=== PATIENT | female | born 1970 | race African-American/Black ===

== ENCOUNTER 2021-04-14 15:22 | Emergency (ER) | payer BC, SELFPAY ==
[2021-04-14 15:33] VITALS: BP 175/106; PULSE 74; RESP 16; TEMP 36.4; O2SAT 100
--- NOTE | 2021-04-14 16:10 | ECG_ITS ---
Measurements Intervals [place] Rate: 73 P: 43 WA: 133 QRS: 16 QRSD: 85 T: 8 QT: 372 QTc: 410 Interpretive Statements SINUS RHYTHM VOLTAGE CRITERIA FOR LVH NONSPECIFIC T-WAVE ABNORMALITY- ANT/INF LEADS BASELINE ARTIFACT- I, II, III, AVR, AVL, AVF, V1-V2 BORDERLINE ECG Electronically Signed On 04-15-2021 7:38:23 SHANK SORTER by Jack Weeks D.O.
--- NOTE | 2021-04-14 16:10 | ED.CHESTPAIN ---
HPI - Chest Pain General Chief Complaint: Chest Pain Stated Complaint: numbness left hand/cp Time Seen by Provider: 04/14/21 15:56 Source: patient and RN notes reviewed Mode of arrival: ambulatory Limitations: no limitations History of Present Illness HPI narrative: Patient presents today complaining of a 2-day history of intermittent left chest pressure and intermittent left arm, hand, and finger numbness. She is currently experiencing and rates her left chest pressure 3/10. These symptoms are lessened when she takes a double dose of her losartan, which she has been doing to decrease her blood pressure. Blood pressure upon arrival was 175/106. States when her chest pressure is high she also experiences radiation to her back. Denies shortness of breath, headache, dizziness, lightheadedness, weakness. Denies numbness or tingling to the face. MD complaint: chest discomfort Related Data Home Medications Medication Instructions Recorded Confirmed ascorbic acid (vitamin C) 04/14/21 aspirin 81 mg PO DAILY 04/14/21 04/14/21 biotin 04/14/21 hydrochlorothiazide 04/14/21 losartan 04/14/21 mecobalamin (vitamin B12) 04/14/21 vitamin E 04/14/21 Allergies Allergy/AdvReac Type Severity Reaction Status Date / Time No Known Allergies Allergy Mild Verified 02/17/09 12:59 Review of Systems Review of Systems: CONSTITUTIONAL: Denies body aches, fever, chills, or sweats. EYES: Denies visual changes, redness, or discharge. ENT: Denies rhinorrhea, congestion, sore throat, or otalgia. CARDIOVASCULAR: Denies chest pain, palpitations, or edema.+ Left chest pressure RESPIRATORY: Denies cough or dyspnea. GASTROINTESTINAL: Denies abdominal pain, nausea, vomiting, or diarrhea. GENITOURINARY: Denies dysuria or hematuria. SKIN: Denies rash, itching, or wounds. MUSCULOSKELETAL: Denies back pain, joint pain, or myalgia. NEUROLOGIC: Denies headache, or weakness.+ Numbness and tingling into the left arm and hand PSYCH: Denies depression or anxiety. [facility] Past Medical History Medical History (Updated 04/14/21 @ 16:36 by Anabel Coburn, MOHS SURGEON, BC) Hypertension Comments At time of signature, I have reviewed and agree with nursing past medical, surgical, social and family history unless otherwise noted. Please see nursing chart for further information. There is no relevant family history pertinent to the presenting complaint Exam Narrative: GENERAL: Well-appearing, well-nourished, and in no acute distress. HEAD: Normocephalic, atraumatic. EYES: EOMI. PERRL. No redness or drainage. Conjunctivae normal. ENT: Mucous membranes pink and moist. NECK: Normal AROM. CHEST: No respiratory distress. Clear to auscultation. Chest is nontender to palpation. HEART: Regular rate and rhythm. No murmur appreciated. Normal peripheral pulses. MUSCULOSKELETAL: No bony tenderness. EXTREMITIES: Normal range of motion. No edema. Handgrips equal and strong. Dorsiflexion and plantarflexion equal and strong bilaterally. SKIN: Warm, dry, no rash. Capillary refill normal. Normal skin turgor. NEURO: No focal deficits. Alert and oriented x3. Gait steady. PSYCH: Normal affect. No signs of depression or anxiety. Course Vital Signs Vital signs: Vital Signs Temperature 97.5 F L 04/14/21 15:33 Pulse Rate 74 04/14/21 15:33 Respiratory Rate 16 04/14/21 15:33 Blood Pressure 175/106 H 04/14/21 15:33 Pulse Oximetry 100 04/14/21 15:33 Temperature 97.5 F L 04/14/21 15:33 Pulse Rate 74 04/14/21 15:33 Respiratory Rate 16 04/14/21 15:33 Blood Pressure 175/106 H 04/14/21 15:33 Pulse Oximetry 100 04/14/21 15:33 Reviewed. Transfer Transfered to: [facility]: Other (private vehicle) Transfer rationale: Chest pain Accepting physician: Roberto HOANG - Chest Pain Differential Diagnosis Differential diagnosis: Likely stable angina, st elevation myocardial infarction, chest pain and other (ACS, TIA) ECG Data EKG #1
== END 2021-04-14 16:24 | disposition short-term general hospital (02) ==
PROVIDERS: Emergency Provider Nurse Practitioner
DX: R07.89 Other chest pain (principal); I10 Essential (primary) hypertension; Z79.82 Long term (current) use of aspirin
CPT/HCPCS: 93005; 99213; G0463

== ENCOUNTER 2021-04-14 16:41 | Emergency (ER) | payer BC, SELFPAY ==
[2021-04-14] VITALS (7 sets, daily range): BP systolic 139–187; BP diastolic 90–103; PULSE 71–92; RESP 13–22; TEMP 36.1–36.8; O2SAT 97–100
--- NOTE | ~2021-04-14 | XR_ITS ---
EXAMINATION: XR chest 2V DATE: 04/14/2021 17:15 INDICATION: Medial left chest pain/pressure with numbness and tingling at the left arm TECHNIQUE: PA and lateral views of the chest were obtained. COMPARISON: None FINDINGS: The lungs are clear with no focal airspace opacities, pulmonary edema, pleural effusion or pneumothor ax. The cardiomediastinal silhouette is normal. Minimal thoracic dextrocurvature. IMPRESSION: 1. No acute cardiopulmonary disease. Reviewed, dictated and finalized at location [facility]. [facility] ANESTHETIST
--- NOTE | 2021-04-14 16:46 | ECG_ITS ---
Measurements Intervals [place] Rate: 71 P: 51 NV: 158 QRS: 32 QRSD: 86 T: 22 QT: 374 QTc: 408 Interpretive Statements SINUS RHYTHM BORDERLINE T WAVE ABNORMALITY- ANTERIOR LEADS BASELINE WANDER- V2, V5-V6 BORDERLINE ECG Electronically Signed On 04-15-2021 7:37:12 [employer] by Jack Weeks D.O.
[2021-04-14 18:14] LABS: Basophils Absolute Auto 0.1 K/mm3 (0.0-0.1); Eosinophils Absolute Auto 0.1 K/mm3 (0-0.3); Eosinophils Percent Auto 1.2 % (0-4.4); Hemoglobin 13.3 g/dL (12.0-15.0); Immature Granulocyte Absolute 0.01 K/mm3 (0.00-0.031); Immature Granulocyte Percent A 0.2 % (0-0.5); Lymphocytes Absolute Auto 2.08 K/mm3 (0.9-3.2); Lymphocytes Percent Auto 35.2 % (18.3-44.2); Mean Corpuscular HGB Conc 33.3 g/dl (32-36); Mean Corpuscular Hemoglobin 28.5 pg (26-34); Mean Corpuscular Volume 85.7 fl (80-100); Mean Platelet Volume 9.6 fl (7.4-10.4); Monocytes Absolute Auto 0.5 K/mm3 (0.1-0.6); Monocytes Percent Auto 8.5 % (2.6-8.5); Neutrophils Absolute Auto 3.2 K/mm3 (1.3-6.7); Neutrophils Percent Auto 53.9 % (45.5-73.1); Platelet Count Result 342 k/mm3 (150-375); Red Blood Count 4.67 M/mm3 (4.2-5.4); Red Cell Distribution Width 13.4 % (11.5-14.5); White Blood Count 5.9 K/mm3 (4.5-10.0)
[2021-04-14 18:21] LABS: Alanine Aminotransferase 15 U/L (4-35); Alkaline Phosphatase 85 U/L (38-126); Anion Gap 8 mmol/L (8-16); Aspartate Amino Transferase 25 U/L (14-36); Bilirubin,Total 0.3 mg/dL (0.2-1.3); Blood Urea Nitrogen 12 mg/dL (7-17); Carbon Dioxide 28 mmol/L (22-30); Chloride 98 mmol/L (98-107); Estimated CRCL calculation 56 ml/min; Estimated Glomerular Filt Rate > 60; Glucose 83 mg/dL (65-110); INR 0.9; Lipase 83 U/L (23-300); Potassium 3.8 mmol/L (3.4-5.0); Prothrombin Time 12.4 Seconds (11.1-14.7); Sodium 134 mmol/L (137-145)
[2021-04-14 18:22] LABS: Partial Thromboplastin Time 31.1 SECONDS (22.3-36.8)
[2021-04-14 18:33] LABS: Troponin I < 0.012 ng/mL (0.000-0.034)
[2021-04-14] MEDS: ASPIRIN 81 MG CHEWABLE TABLET 324 MG PO (21:42)
[2021-04-14] MEDS: amLODIPine BESYLATE 5 MG TABLET PO (21:43)
[2021-04-14 22:07] LABS: Troponin I < 0.012 ng/mL (0.000-0.034)
--- NOTE | 2021-04-14 22:37 | ED.CHESTPAIN ---
HPI - Chest Pain General Chief Complaint: Chest Pain Stated Complaint: sent from urgent care, chest pressure, elevated bp Time Seen by Provider: 04/14/21 21:26 Source: patient Mode of arrival: ambulatory History of Present Illness HPI narrative: 51-year-old with a history of hypertension sent from urgent care with left-sided chest pain ongoing for past few days. Patient states her blood pressure is been quite elevated for last few days. She is doubling her dose of losartan yet her blood pressure has not gone down. She denies any shortness of breath. No previous history of coronary artery disease. MD complaint: chest pain Onset (ago): day(s) (2) Timing of current episode: episodic Pain location: left chest Pain radiation: left arm Severity: mild Quality: aching Relieving factors: nothing Exacerbating factors: nothing Risk Factors Coronary artery disease risk factors: hypertension Related Data Home Medications Medication Instructions Recorded Confirmed ascorbic acid (vitamin C) 04/14/21 aspirin 81 mg PO DAILY 04/14/21 04/14/21 biotin 04/14/21 hydrochlorothiazide 04/14/21 losartan 04/14/21 mecobalamin (vitamin B12) 04/14/21 vitamin E 04/14/21 Allergies Allergy/AdvReac Type Severity Reaction Status Date / Time No Known Allergies Allergy Mild Verified 04/14/21 21:39 Review of Systems Review of Systems: All systems reviewed & are unremarkable except as noted in HPI and below Constitutional: Constitutional: Reports no additional constitutional complaints Eyes: Eyes: Reports no additional eye complaints ENT: Reports system reviewed and no additional complaints, except as documented Cardiovascular: Cardiovascular: Reports as per HPI Respiratory: Respiratory: Reports no additional respiratory complaints Gastrointestinal: Gastrointestinal: Reports no additional gastrointestinal complaints Musculoskeletal: Musculoskeletal: Reports no additional musculoskeletal complaints Neurologic: Reports system reviewed and no additional complaints, except as documented Psychiatric: Psychiatric: Reports no additional psychiatric complaints PMFSH Past Medical History Medical History Hypertension Exam Narrative: GENERAL: Well-appearing, well-nourished, and in no acute distress. HEAD: Normocephalic, atraumatic. EYES: PERRLA and EOMI. NECK: Supple. CHEST: Clear to auscultation. No respiratory distress. HEART: Regular rate and rhythm. No murmur heard. Normal peripheral pulses. ABDOMEN: Soft, nontender, nondistended, normal active bowel sounds. EXTREMITIES: Normal range of motion. No edema. SKIN: Warm, dry, no rash. NEURO: No focal deficits. Alert and oriented x3. PSYCH: Normal mood and affect. Course Course Emergency Course: Patient presently not having active chest pain and EKG was unremarkable. I have reviewed her labs however her blood pressure was elevated I did give her Norvasc 5 mg which brought her pressure down to 137/88. She is feeling much better. Advised her to take Norvasc 5 mg daily along with her medications., Follow-up with her primary doctor. Vital Signs Vital signs: Vital Signs Temperature 36.1 C L 04/14/21 17:01 Pulse Rate 79 04/14/21 17:01 Respiratory Rate 18 04/14/21 17:01 Blood Pressure 187/93 H 04/14/21 17:01 Pulse Oximetry 100 04/14/21 17:01 Temperature 36.8 C 04/14/21 19:47 Pulse Rate 71 04/14/21 22:15 Respiratory Rate 14 04/14/21 22:15 Blood Pressure 149/90 H 04/14/21 22:15 Pulse Oximetry 97 04/14/21 22:15 MDM - Chest Pain Differential Diagnosis Differential diagnosis: Likely unstable angina pectoris, atypical chest pain and chest pain Medical Records Data Attestation: I reviewed the patient's medical records. Lab Data Attestation: I reviewed the patient's lab results. Result diagrams: 04/14/21 17:37 04/14/21 17:37 Labs: Lab Results 04/14/21
== END 2021-04-14 23:43 | disposition home or self-care (01) ==
PROVIDERS: Emergency Provider Family Medicine
DX: I10 Essential (primary) hypertension (principal); Z79.82 Long term (current) use of aspirin; R94.31 Abnormal electrocardiogram [ECG] [EKG]
CPT/HCPCS: 36415; 71046; 80053; 83690; 84484; 85025; 85610; 85730; 93005; 99284; A9270

== ENCOUNTER 2021-06-15 17:56 | Emergency (ER) | payer BC, SELFPAY ==
--- NOTE | ~2021-06-15 | XR_ITS ---
EXAMINATION: XR ankle RT min 3V INDICATION: Right ankle pain TECHNIQUE: Four views of the right ankle are obtained. COMPARISON: None available FINDINGS: There is a tiny heterotopic ossification projecting distal to the medial malleolus. Medial ankle soft tissue swelling is present. Bone alignment is normal. IMPRESSION: 1. Findings consistent with avulsion injury of the medial malleolus. Reviewed, dictated and finalized at location F. K BAKER
[2021-06-15 18:04] VITALS: BP 191/113; PULSE 71; RESP 16; TEMP 36.3; O2SAT 100
--- NOTE | 2021-06-15 18:07 | ED.LOWEXIN ---
HPI - Extremity Injury (Lower) General Chief Complaint: Extremity Injury, Lower Stated Complaint: swelling/pain right leg Time Seen by Provider: 06/15/21 18:07 Source: patient, RN notes reviewed and old records reviewed Mode of arrival: ambulatory Limitations: no limitations History of Present Illness HPI Narrative: 51-year-old female presents to the [facility] with right ankle swelling, pain and increased warmth for 2-3 days States that she scratched a couple days ago right before it started. No treatment prior to arrival Unknown injury. Patient has a concern for cellulitis with no wounds noted. Patient has a history of hypertension but did not take any of her medications today. Related Data Home Medications Medication Instructions Recorded Confirmed ascorbic acid (vitamin C) 1 tab-cap DAILY 04/14/21 06/15/21 aspirin 81 mg PO DAILY 04/14/21 06/15/21 biotin 1 tab-cap DIRECTED 04/14/21 06/15/21 hydrochlorothiazide 25 mg DIRECTED 04/14/21 06/15/21 losartan 50 mg DIRECTED 04/14/21 06/15/21 mecobalamin (vitamin B12) 1 tab-cap DAILY 04/14/21 06/15/21 vitamin E 1 tab-cap DAILY 04/14/21 06/15/21 Allergies Allergy/AdvReac Type Severity Reaction Status Date / Time No Known Allergies Allergy Mild Verified 04/14/21 21:39 Review of Systems Review of Systems: All systems reviewed & are unremarkable except as noted in HPI and below Constitutional: Constitutional: Reports no additional constitutional complaints, Denies fever(s) and Denies weakness Eyes: Eyes: Reports no additional eye complaints ENT: Reports system reviewed and no additional complaints, except as documented Cardiovascular: Cardiovascular: Reports no additional cardiovascular complaints and Denies chest pain Respiratory: Respiratory: Reports no additional respiratory complaints, Denies cough and Denies dyspnea Gastrointestinal: Gastrointestinal: Reports no additional gastrointestinal complaints, Denies abdominal pain, Denies nausea and Denies vomiting Musculoskeletal: Musculoskeletal: Reports as per HPI, Reports arthralgias (Medial right ankle) and Reports joint swelling (right ankle) Integumentary/Breasts: Skin/Breast: Reports system reviewed and no additional complaints, except as docu and Denies rash Neurologic: Reports system reviewed and no additional complaints, except as documented Psychiatric: Psychiatric: Reports no additional psychiatric complaints Allergic/Immunologic: Allergic/Immunologic: Reports no additional allergic/immunologic complaints PMFSH Past Medical History Medical History Hypertension Comments At the time of my signature, I reviewed and agree with the nursing past medical, surgical, social, and family history. There is no relevant family history pertinent to the patient complaint. Exam Const: General: healthy appearing, no acute distress and alert Nutritional Appearance: well nourished Orientation/consciousness: patient oriented x3 Limitations: no limitations HENMT: Head: normal to inspection Ears: external ears normal Eyes: Pupils: Equal, round and reactive pupils present Neck: Neck: normal visual inspection, no lymphadenopathy and no meningeal signs Chest: Chest palpation & inspection: normal inspection of the chest Resp: Effort & Inspection: normal respiratory effort Auscultation: clear to auscultation bilaterally Cardio: Rate: regular rate Rhythm: regular rhythm : General: Yes no CVA tenderness Skin: General skin exam: normal color Rashes: no rashes Wounds: no wounds Neuro: General: patient oriented x3, moves all extremities, no meningeal signs and no focal motor deficits Cranial nerves: Yes Equal, round and reactive pupils present Speech: normal speech Gait exam (Neuro): Normal gait present Extrem: Right lower extremity: ankle Details: tenderness Location: of the medial malleolus, swelling Details: medially (Medial malleolus), normal ROM and
[2021-06-15 19:28] VITALS: BP 171/97
== END 2021-06-15 19:30 | disposition home or self-care (01) ==
PROVIDERS: Emergency Provider Nurse Practitioner
DX: S82.51XA Displaced fracture of medial malleolus of right tibia, initial encounter for closed fracture (principal); X58.XXXA Exposure to other specified factors, initial encounter; I10 Essential (primary) hypertension
CPT/HCPCS: 29515; 73610; 99214; G0463

== ENCOUNTER 2021-08-30 07:30 | Outpatient (RCR) | payer BC, SELFPAY ==
--- NOTE | 2021-08-02 09:53 | PTOPEVAL ---
PHYSICAL THERAPY EVALUATION AND PLAN OF CARE Thank you for referring Lashawn Hartman to [facility] The patient is scheduled to be seen for therapy? 2x/week for 4 weeks. Please review, sign, date and return this plan of care LU. I agree with and certify that the following plan of care is medically necessary. Referring Physician Date Attending Provider: Tavo Tee APN Evaluation Diagnosis right medial malloelus fx Onset 06/15/21 Subjective Information Brooke is here today for Query Text:As Reported By Patient/ evaluation following a right Family medial mallelus avulsion fx. Cam boot was taken off 6 days ago. She feels like the ankle is really weak and it gets tired very easily. Nurse by profession. Self Report Pain Assessment Right Ankle(s) Reported Pain Level 4 Lowest Pain Intensity 0 Greatest Pain Intensity 6 Pain Aggravating Factors Stair Climbing,Walking,Weight Bearing/Standing Pain Behaviors Guarding Ankle/Foot Range of Motion Right Ankle Dorsiflexion With Knee Flexed -2 Range of Motion - Active Ankle Plantarflexion Range of Motion - 35 Active Query Text: Ankle Eversion Range of Motion - Active 9 Ankle Inversion Range of Motion - Active 35 Ankle Strength Right Ankle Dorsiflexion Strength 3 Fair Ankle Eversion Strength 3 Fair Ankle Inversion Strength 3 Fair Palpation tender to palpate medial malleolus, plantar surface tissues, and achilles tendon Gait Assessment Ambulation Speed (feet/second) 2.3 Gait Pattern Assessment Other Gait Observations decreased right ankle dorsiflexion leading to early heel off and increased right pelvic posterior rotation Stair Climbing Comments decreased dorsiflexion during descending and increased caution and guarding when using right LE for ascending PT Clinical Summary Brooke is a 51 yo female presenting to outpatient physical therapy 7 wks s/p right avulsion fracture. She presents today with significantly decreased right ankle ROM, especially into dorsiflexion and with poor motor recruitment to perfo
--- NOTE | 2021-08-30 08:04 | PTOPEVAL ---
PHYSICAL THERAPY DISCHARGE NOTE Thank you for referring Lashawn Hartman to [facility]. Please review, sign, date and return this plan of care LU. I agree with and certify that the following plan of care is medically necessary. Referring Physician Date Attending Provider: Tavo Tee APN Diagnosis right medial malloelus fx Onset 06/15/21 Subjective Information States things have been going Query Text:As Reported By Patient/ ok. There is some stiffness Family and feels like the endurance is not quite there. 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 Ankle/Foot Range of Motion Right Ankle Dorsiflexion With Knee Flexed 10 Range of Motion - Active Ankle Plantarflexion Range of Motion - 50 Active Query Text: Ankle Eversion Range of Motion - Active 18 Ankle Inversion Range of Motion - Active 41 Lower Extremity Muscle Strength Testing Ankle Strength Right Ankle Dorsiflexion Strength 5 Normal Ankle Eversion Strength 5 Normal Ankle Inversion Strength 5 Normal Gait Observations very mild antalgia noted and she states she feels a pull at the end of stance phase that causes her to nut picker her foot a little early Stair Climbing Assessment Technique Alternating Steps Stair Climbing Direction Both Up and Down Stair Climbing Ability Independent Stair Climbing Comments caution with activity but PT Clinical Summary Brooke has been participating in physical therapy s/p right medial malleolus avulsion fracture. She is wearing her normal shoes and is getting up and is active at home every day. Reports no pain today, but achiness and stiffness. She demonstrates normal strength and range of motion of the ankle and gait pattern is nearly returned to normal. She is eager to return to work and understands that her endurance will return wtih time.
== END 2021-08-31 10:40 | disposition home or self-care (01) ==
LOC: ANHPT 07:30
PROVIDERS: Visit Provider Nurse Practitioner
DX: S82.51XA Displaced fracture of medial malleolus of right tibia, initial encounter for closed fracture (principal)
CPT/HCPCS: 97110; 97112; 97116; 97140; 97161; 97530

== ENCOUNTER 2022-12-13 18:45 | Emergency (ER) | payer BC, SELFPAY ==
[2022-12-13 18:56] VITALS: BP 137/92; PULSE 76; RESP 16; TEMP 36.6; O2SAT 99
--- NOTE | 2022-12-13 19:37 | ED.URI ---
HPI - URI/Sore Throat General Chief Complaint: Upper Respiratory Infection Stated Complaint: cough,congestion Source: patient and RN notes reviewed History of Present Illness HPI Narrative: 52-year-old female presents to urgent care a worsening cough and congestion over the course of 8 days. Pt states she will get intermittently lightheaded at times. Pt will also get SOB with some exertion sometimes. Denies any chest pain. Denies any known fevers or chills. Pt has vomited after coughing but nothing since. Pt has been taking Mucinex at home with moderate relief. Related Data Home Medications Medication Instructions Recorded Confirmed ascorbic acid (vitamin C) 1 tab-cap DAILY 04/14/21 12/13/22 aspirin 81 mg capsule 81 mg PO DAILY 04/14/21 12/13/22 hydrochlorothiazide 25 mg tablet 25 mg DIRECTED 04/14/21 12/13/22 losartan 50 mg tablet 50 mg DIRECTED 04/14/21 12/13/22 Allergies Allergy/AdvReac Type Severity Reaction Status Date / Time No Known Allergies Allergy Mild Verified 12/13/22 19:05 Review of Systems Review of Systems: CONSTITUTIONAL: Denies fever, chills, or sweats. EYES: Denies visual changes, redness, or discharge. ENT: congestion CARDIOVASCULAR: Denies chest pain, palpitations, or edema. RESPIRATORY: cough and intermittent dyspnea with exertion GASTROINTESTINAL: Denies abdominal pain, nausea, vomiting, or diarrhea. GENITOURINARY: Denies dysuria or hematuria. SKIN: Denies rash or itching. MUSCULOSKELETAL: Denies back pain, joint pain, or myalgia. NEUROLOGIC: intermittent lightheadedness Pertinent positives per HPI. [facility] Past Medical History Medical History Hypertension Surgical History Surgical History H/O: hysterectomy History of tonsillectomy Family History Family History Mother Hypertension Grandparent Hypertension Depression Social History Social History Smoking status: Never smoker Alcohol intake: never Substance use: never Living arrangements: alone Occupation/Education: occupation Additional occupation/education comments: [employer] Gender identity (if verbalized by the patient): Female Comments At the time of my signature, I reviewed and agree with the nursing past medical, surgical, social, and family history. There is no relevant family history pertinent to the patient complaint. Exam Narrative: GENERAL: This is a well-nourished, well-developed patient, in no apparent distress. HEAD: normocephalic, atraumatic. EYES: Sclera clear/white. Vision is grossly intact. EARS: External ears normal, auditory canals clear and without drainage, TMs normal without perforation. Hearing grossly intact. NOSE: External nose normal with no obvious nasal discharge, nares without redness, no rhinorrhea. THROAT: Mucous membranes moist, posterior pharynx clear. NECK: Neck supple, non-tender without lymphadenopathy, masses or thyromegaly. CARDIOVASCULAR: Regular rate and rhythm without murmurs, gallops, or rubs. RESPIRATORY: Clear to auscultation. Breath sounds equal bilaterally. No wheezes, rales, or rhonchi. GASTROINTESTINAL: Abdomen soft, non-tender, nondistended. Bowel sounds are active. No hepato-splenomegaly, or palpable masses. No guarding. SKIN: warm, intact with no suspicious lesions or rash, good texture and turgor. NEURO: awake, alert, and oriented to person, place and time. There were no obvious focal neurologic abnormalities. Course Course Level of Care: Express Care Visit Vital Signs Vital signs: Vital Signs Temperature 97.9 F 12/13/22 18:56 Pulse Rate 76 12/13/22 18:56 Respiratory Rate 16 12/13/22 18:56 Blood Pressure 137/92 H 12/13/22 18:56 Pulse Oximetry 99 12/13/22 18:56 Oxygen Delivery Room Air 11/23
== END 2022-12-13 19:53 | disposition home or self-care (01) ==
PROVIDERS: Emergency Provider Nurse Practitioner Family; PCP Internal Medicine
DX: J32.9 Chronic sinusitis, unspecified (principal); I10 Essential (primary) hypertension; Z79.82 Long term (current) use of aspirin
CPT/HCPCS: 99213; G0463

== ENCOUNTER 2022-12-22 16:03 | Outpatient (CLI) | payer BC, SELFPAY ==
--- NOTE | ~2022-12-22 | DEXA_ITS ---
Bone Density Report Name: ORAL NIEVES Age: 52 Sex: Female Ethnicity: White Date of : 1970 Indication: postmenopausal; screening for osteoporosis; height loss; history of glucocorticoids; hysterectomy; Referring Provider: LIZZ, CLARITZA Study: Bone densitometry was performed. Exam Date: December 22, 2022 Accession number: [id number] Bone Density: Region BMD T-score Z-score Classification AP Spine(L1-L4) 0.997 -0.5 0.5 Normal Femoral Neck (Left) 0.742 -1.0 0.0 Normal Total Hip (Left) 0.903 -0.3 0.3 Normal Femoral Neck (Right) 0.748 -0.9 0.0 Normal Total Hip (Right) 0.901 -0.3 0.2 Normal Total Hip Mean 0.902 -0.3 0.3 Normal World Health Organization criteria for BMD impression classify patients as: Normal (T-score at or above -1.0), Osteopenia (T-score between -1.0 and -2.5), or Osteoporosis (T-score at or below -2.5). 10-year Fracture Risk: FRAX not reported because: All T-scores for Spine Total, Hip Total, Femoral Neck at or above -1.0 Clinical Information Provided by Patient: Has taken Glucocorticoids Has the following medical conditions: Hysterectomy Patient maximum height was 64.5 Menopause Age: 27 No regular weight bearing exercise Drinks caffeinated beverages Onset of menses at age 12 Number of children 4 Impression: The patient has normal bone mass. The patient has risk factors, including: history of glucocorticoid therapy. Discussion: BONE DENSITY IS ABOVE THE MINIMUM DESIRABLE LEVEL AT ALL SKELETAL SITES TESTED. This patient?s bone mineral density is above the minimum desirable level (T-score -1.0 or better) at all sites measured. The patient should follow a healthful lifestyle (good nutrition with adequate calcium and vitamin D, and appropriate weight-bearing exercise). Follow-Up: Consider repeating this study in 5 years or sooner if there is some new clinical indication. Reported by: [facility] on 12/22/2022 4:34:00 PM. Reviewed, dictated and finalized at location [facility]
--- NOTE | ~2022-12-22 | MM_ITS ---
EXAMINATION: MM screening atilio BI w deloris HISTORY: Baseline screening mammogram TECHNIQUE: Craniocaudal and mediolateral oblique 3-D tomosynthesis images were obtained and synthetic 2-D images were generated. CAD analysis was submitted and interpreted. COMPARISON: None, baseline BREAST PARENCHYMAL COMPOSITION: There are scattered areas of fibroglandular density. FINDINGS: There are multiple similar appearing obscured, equal and low-density bilateral breast diamond s. No discrete suspicious mass is identified. There are no suspicious calcifications or architectural distortion. IMPRESSION: 1. No mammographic evidence of malignancy. 2. Recommend routine screening mammography in one year. BI-RADS Category 2: Benign finding(s). Reviewed, dictated and finalized at location B.
== END 2022-12-22 16:04 | disposition home or self-care (01) ==
PROVIDERS: PCP Internal Medicine; Visit Provider Internal Medicine
DX: Z12.31 Encounter for screening mammogram for malignant neoplasm of breast (principal); Z78.0 Asymptomatic menopausal state
CPT/HCPCS: 77063; 77067; 77080

== ENCOUNTER 2023-04-28 16:00 | Emergency (ER) | payer BC, SELFPAY ==
--- NOTE | ~2023-04-28 | XR_ITS ---
XR knee RT 3V DATE: 04/28/2023 16:34 INDICATION: Knee pain. No injury. TECHNIQUE: AP, lateral, sunrise views. COMPARISON: None FINDINGS: No fracture or dislocation or joint effusion, periosteal reaction or bone destruction, radi opaque intra-articular loose body or chondrocalcinosis. Joint spaces are well preserved. IMPRESSION: Negative Reviewed, dictated and finalized at location B. [facility] OFFICE MANAGER IMPRESSION: Negative
[2023-04-28 16:08] VITALS: BP 124/93; PULSE 91; RESP 16; TEMP 36.6; O2SAT 100
--- NOTE | 2023-04-28 16:20 | ED.EXTPRO ---
HPI - Extremity Problem General Chief complaint: Extremity Problem,Nontraumatic Stated complaint: Right Knee Pain Source: patient Mode of arrival: ambulatory Limitations: no limitations History of Present Illness HPI Narrative: 53-year-old female presenting for complaint of right knee pain and swelling for about 4 days. States it was a sudden onset without specific injury. States it feels like the knee is going to give out or lock while walking. She is taking Tylenol, ibuprofen, and extra hydrochlorothiazide for the swelling. Also trying to rest it, Applying ice and heat. 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 Denies numbness, tingling, weakness of the extremity. Related Data Home Medications Medication Instructions Recorded Confirmed hydrochlorothiazide 25 mg tablet 25 mg PO DAILY 04/28/23 04/28/23 losartan 50 mg tablet 50 mg PO DAILY 04/28/23 04/28/23 Allergies Allergy/AdvReac Type Severity Reaction Status Date / Time No Known Allergies Allergy Mild Verified 04/28/23 16:12 Review of Systems Review of Systems: CONSTITUTIONAL: Denies body aches, fever, chills CARDIOVASCULAR: Denies chest pain, palpitations, or edema. RESPIRATORY: Denies cough or dyspnea. GASTROINTESTINAL: Denies abdominal pain, nausea, vomiting, or diarrhea. SKIN: Denies rash, itching, or wounds. MUSCULOSKELETAL: Reports right knee pain Denies back pain, or myalgia. NEUROLOGIC: Denies headache, numbness, tingling, or weakness. All systems reviewed & are unremarkable except as noted in HPI and below PMFSH Past Medical History Medical History Hypertension Surgical History Surgical History H/O: hysterectomy History of tonsillectomy Family History Family History Mother Hypertension Grandparent Hypertension Depression Social History Social History Smoking status: Never smoker Alcohol intake: never Substance use: never Living arrangements: alone Occupation/Education: occupation Additional occupation/education comments: SUPER[employer] Gender identity (if verbalized by the patient): Female Comments At time of signature, I have reviewed and agree with nursing past medical, surgical, social and family history unless otherwise noted. Please see nursing chart for further information. There is no relevant family history pertinent to the presenting complaint Exam Narrative: GENERAL: Well-appearing CHEST: Speaks in full sentences. No respiratory distress. HEART: Regular rate and rhythm. Normal and equal peripheral pulses. EXTREMITIES: RLE has normal strength and sensation, normal range of motion of knee, but endorses pain with certain movement. Tender to superior/lateral aspect. Mild swelling to superior aspect, no ecchymosis, No open wounds, or obvious deformity; alignment normal, No tenderness to palpation of the patella, no effusion or ballottement. No tenderness over the infrapatellar tendon. No tenderness over the proximal fibular head. No quadriceps tenderness. Distal motor and neurovascular status intact. pulse palpable and equal bilaterally. SKIN: Warm, dry, no rash. NEURO: Alert and oriented x3. PSYCH: Normal mood and affect Extrem: Knee images: 1. area of tenderness Course Course Emergency Course: Patient is aware of diagnosis, understands and agrees to treatment plan. Anticipatory guidance given. Patient agrees to follow-up as directed and is aware of reasons to seek care at the emergency department. Portions of this record may have been created with voice recognition software Level of Care: Express Care Visit Vital Signs Vital signs: Vital Signs Temperature 97.9 F 04/28/23 16:08 Pulse Rate 91 04/28/23 16:08 Respiratory Rate 16 04/28/23 16:08 Blood P
== END 2023-04-28 17:10 | disposition home or self-care (01) ==
PROVIDERS: Emergency Provider Nurse Practitioner Family; PCP Internal Medicine
DX: M25.561 Pain in right knee (principal); I10 Essential (primary) hypertension
CPT/HCPCS: 73562; 99213; G0463

== ENCOUNTER 2023-12-16 08:04 | Outpatient (CLI) | payer BC, SELFPAY ==
[2023-12-16 08:42] LABS: Anion Gap 9 mmol/L (4-12); Blood Urea Nitrogen 11 mg/dL (7-17); Calcium 9.4 mg/dL (8.4-10.2); Carbon Dioxide 26 mmol/L (22-30); Chloride 104 mmol/L (98-107); Estimated Glomerular Filt Rate > 60; Glucose 90 mg/dL (65-110); Potassium 3.8 mmol/L (3.4-5.0); Sodium 139 mmol/L (137-145)
== END 2023-12-16 08:05 | disposition home or self-care (01) ==
PROVIDERS: PCP Internal Medicine; Visit Provider Anesthesiology
DX: N35.92 Unspecified urethral stricture, female (principal); Z79.899 Other long term (current) drug therapy
CPT/HCPCS: 36415; 80048; 87086; 93005

== ENCOUNTER 2023-12-19 01:42 | Day surgery (SDC) | payer BC, SELFPAY ==
[2023-12-15 15:00] VITALS: BMI 26.1
--- NOTE | 2023-12-15 15:28 | PC.NURSE ---
Report to the Outpatient Waiting Room, entrance under the green pavilion located off [facility], at time _1030_ on date _[id number]_. Planned Procedure Time: _1230_.? Time changes happen often and if your time is changed the preop area will call you the afternoon before. - You and your visitor will be asked to self-screen and do not enter if you have any COVID symptoms. Please call surgeon if you need to reschedule. - A mask is optional within the hospital at this time. Patients may have clear liquids (water, carbonated beverages, clear teas, apple juice) until 3 hours prior to surgery with a maximum of 20 ounces. - No food from midnight until time of surgery and no smoking Take only the following medications with a SIP of water on the morning of surgery: ___Midol DO NOT STOP ANY OF YOUR OTHER PRESCRIPTION MEDICATIONS PRIOR TO SURGERY EXCEPT THE FOLLOWING Medications to discontinue per physician None Date to take last dose Please no make-up, nail croatian, hairspray, perfume, deodorant, or body powder the day of surgery.? No jewelry (including any body piercings) or valuables the day of surgery, leave them at home.? Please take a shower or bath the night before, or the morning of, surgery with an antibacterial soap.? Wear comfortable, loose fitting clothing.? - Jewelry must be removed prior to entering the operating room.? Rings and piercings that are not removed may be cut off. - The hospital will not accept responsibility for valuables.? - Please leave all valuables, including medications, at home the day of surgery. If you are going home after surgery, a licensed funeral driver must drive you home.? - NO public transportation without another adult if you receive anesthesia. - We recommend that an adult stay with you for 24 hours following discharge. - We also recommend that you do not drive, make important decision, drink alcoholic beverages, or take any drugs that were not prescribed by your health care provider for at least 24 hours after your discharge time. Follow any additional instructions given to you from your surgeon. Telephone instructions given to ___Lashawn___and asked if any additional questions and then verbalized understanding. Patient advised to call surgeon office or pre surgery nurse liaison [phone] if any additional questions.
--- NOTE | 2023-12-16 08:24 | ECG_ITS ---
Test Date: 2023-12-16 08:36:06 Measurements Intervals [place] Rate: 69 P: 42 LA: 171 QRS: 55 QRSD: 86 T: 2 QT: 375 QTc: 404 Interpretive Statements SINUS RHYTHM NONSPECIFIC ST AND T-WAVE ABNORMALITY No previous ECG available for comparison Electronically Signed On 12-16-2023 10:37:15 CDT by Kady Calles M.D.
--- NOTE | 2023-12-19 11:17 | P.PNAN_ITS ---
Anes - Initial Pre Proc Eval Procedure: Operation Date: 12/19/23 12:30 Proposed Procedures p Cystoscopy, Urethral Dilatation - Ramírez Velazco MD Date/Time: 12/19/23 11:17 Surgeon: Ramírez Velazco MD Pre Op Diagnosis: Urethral Meatal Stenosis , Pelvic Pain, Patient Data Age: 53 Gender: F Height: 1.63 m Weight: 69 kg Allergies Allergy/AdvReac Type Severity Reaction Status Date / Time No Known Allergies Allergy Mild Verified 12/15/23 14:53 Home Medications Medication Instructions Recorded Confirmed Type hydrochlorothiazide 25 mg tablet 25 mg PO DAILY 04/28/23 12/15/23 History losartan 50 mg tablet 50 mg PO DAILY 04/28/23 12/15/23 History acetaminophen-pamabrom 500 mg-25 1 tablet PO Q4-6H PRN Pain 12/15/23 12/15/23 History mg tablet (Midol) Patient hx anesthesia problems: none Family hx anesthesia problems: none Results Review: All pre-operative results and documents have been reviewed as part of the pre- operative evaluation. [facility] Past Medical History Medical History Hypertension Surgical History Surgical History H/O: hysterectomy History of tonsillectomy Family History Family History Mother Hypertension Grandparent Hypertension Depression Social History Social History Smoking status: Current every day smoker Additional smoking assessment comments: MIni cigars Alcohol intake: never Substance use: never Substance use type: marijuana Living arrangements: with family Occupation/Education: occupation Additional occupation/education comments: [employer] Gender identity (if verbalized by the patient): Female Spiritual care concerns: No Anes - Eval Final PreProcedure Day of Procedure 12/19/23 11:17 Patient weight: overweight Heart: regular rate and rhythm Lungs: clear to auscultation Airway: Mallampati scale class II Neurological: alert and oriented Last oral intake: >/= 8 hours ASA classification: II Emergent: no Anesthetic plan: proceed Anesthesia type and monitoring: general LMA and standard monitoring Results Review: All pre-operative results and documents have been reviewed as part of the pre- operative evaluation. HTN, pt smokes cigars daily, none this morning. Informed Consent: The patient's anesthetic plan and its attendant risks and benefits were discussed with the patient/family/POA. Questions were solicited and answers provided to the satisfaction of the patient/family/POA.
[2023-12-19] MEDS: LACTATED RINGERS 1,000 ML 30 ML IV CONT (11:30)
[2023-12-19 11:49] VITALS: BP 130/85; PULSE 63; RESP 18; TEMP 36.5; O2SAT 100
--- NOTE | 2023-12-19 11:57 | WPDHPUPDATE1 ---
History and Physical Update Update Date/Time: 12/19/23 11:57 History and Physical has been reviewed, including an updated exam of the patient. There are NO changes in the patient's condition. Risks, benefits, and alternatives have been discussed and questions answered. Patient agrees to proceed with procedure. Proceed with urethral dilation, cystoscopy
[2023-12-19] MEDS: ceFAZolin 2 GM/D5W 50 ML 2 GM/50 ML BAG IVPB (12:15)
[2023-12-19] MEDS: LIDOCAINE HCL 2% GEL UROJET 10 ML PKG MUCOUS MEM (12:27)
[2023-12-19 12:50] VITALS: BP 127/85; PULSE 63; RESP 20; O2SAT 100
[2023-12-19 13:20] VITALS: BP 141/88; PULSE 59
--- NOTE | 2023-12-19 13:27 | P.OP_ITS ---
Procedure Note - Detailed Date of Procedure 12/19/23 Pre-op Diagnosis Urethral Meatal Stenosis , Pelvic Pain, Post-op Diagnosis Same (Bladder lesion 1 cm-submucosal) Procedure Performed Cystoscopy with bladder biopsy fulguration and urethral dilatation Surgeon Ramírez Velazco MD Anesthesia General Description of Procedure Patient is taken the operative suite correctly identified. Once anesthesia was obtained she was placed in dorsal lithotomy position prepped draped usual sterile fashion. Her meatus was dilated up to 24 Colombian. It was tight starting at 20 Colombian. Twenty-two Colombian scope was then inserted. Bladder was inspected in its entirety is. There is no bladder tumors noted. There is a submucosal what felt to be cystic area near the dome anterior wall. I used the Bugbee to see if I could at least fulgurated it. This did not pop this lesion. At this point a cold cup biopsy used to biopsy it. Again the mucosa was smooth without any evidence of erythema and simply may be a submucosal nodule. The base was fulgurated. There was good hemostasis. 2% viscous lidocaine was inserted into the urethra. She is taken recovery stable condition. Her CT scan was reviewed with radiologist who felt that it was a very tiny air-fluid gas level which may be coming from the pubic symphysis. The did not see any other irregularities. This completes dictation. Please send a copy of op note to my office. Estimated Blood Loss 0 Packing No Pathology Yes Complications No immediate complications Condition Stable Disposition PACU
[2023-12-19] MEDS: oxyCODONE HCL (*CRX) 5 MG TAB IR PO (13:42)
[2023-12-19 13:50] VITALS: BP 144/88; PULSE 53
[2023-12-19] MEDS: oxyBUTYnin CHLORIDE 5 MG TABLET PO (14:00)
[2023-12-19 14:20] VITALS: BP 142/86; PULSE 53
--- NOTE | 2023-12-19 14:50 | SUR.PHASEII ---
Vitals are stable. Patient is unhooked from monitors and getting dressed.
== END 2023-12-19 14:55 | disposition home or self-care (01) ==
PROVIDERS: PCP Internal Medicine; Visit Provider Urology
PROC: 0T7D8ZZ Dilation of Urethra, Via Natural or Artificial Opening Endoscopic (ICD-10-PCS; CPT 52281; principal; 2023-12-19 12:30)
DX: N30.20 Other chronic cystitis without hematuria (principal); M62.89 Other specified disorders of muscle; N35.92 Unspecified urethral stricture, female; I10 Essential (primary) hypertension; F17.210 Nicotine dependence, cigarettes, uncomplicated
CPT/HCPCS: 52204; 88305; A9270; J0690; J2250; J2405; J2704; J3010; J7120

== ENCOUNTER 2024-10-13 18:51 | Emergency (ER) | payer BC, SELFPAY ==
[2024-10-13 18:57] VITALS: BP 151/84; PULSE 106; RESP 20; TEMP 37.3; O2SAT 98
--- NOTE | 2024-10-13 19:05 | ED.URI ---
HPI - URI/Sore Throat General Chief Complaint: Upper Respiratory Infection Stated Complaint: Fever, Respiratory Problems Time Seen by Provider: 10/13/24 19:00 Source: patient Mode of arrival: ambulatory Limitations: no limitations History of Present Illness HPI Narrative: Lashawn is a 54-year-old female patient presenting to the clinic today with complaints of fever, nonproductive cough, nasal congestion, sore throat, headache, and body aches. She reports symptoms started Monday morning. States highest fever was 101.3? F Related Data Home Medications ?Medication ?Instructions ?Recorded ?Confirmed ?Last Taken ?Type hydrochlorothiazide 25 mg tablet 25 mg PO DAILY 04/28/23 12/19/23 Unknown History losartan 50 mg tablet 50 mg PO DAILY 04/28/23 12/19/23 Unknown History Allergies Allergy/AdvReac Type Severity Reaction Status Date / Time No Known Allergies Allergy Mild Verified 12/19/23 11:48 Review of Systems Review of Systems: Pertinent positives per HPI. Patient denies any fever, chills, rash, headache, visual changes, dizziness, cough, shortness of breath, chest pain, palpitations, nausea, vomiting, diarrhea, constipation, abdominal pain, or any urinary issues. [facility] Past Medical History Medical History Hypertension Surgical History Surgical History History of tonsillectomy H/O: hysterectomy Family History Family History Mother Hypertension Grandparent Hypertension Depression Social History Social History Smoking status: Current every day smoker Additional smoking assessment comments: MIni cigars Alcohol intake: never Substance use: never Substance use type: marijuana Living arrangements: with family Occupation/Education: occupation Additional occupation/education comments: [employer] Gender identity (if verbalized by the patient): Female Spiritual care concerns: No Comments At the time of my signature, I reviewed and agree with the nursing past medical, surgical, social, and family history. There is no relevant family history pertinent to the patient complaint. Exam Narrative: General: Well-developed, well nourished, in no apparent distress Head: Normocephalic, atraumatic Eyes: Pupils equally round and reactive to light bilaterally, EOM intact, sclera and conjunctive clear, no discharge, lids normal Ears: TMs intact and clear, ear canals clear, no drainage, grossly hearing normal. Nose: Nares patent, clear nasal discharge, mild inflammation, no sinus tenderness. Mouth: Oral pharynx red without lesions or masses, good dentition, MMM. Postnasal drip Neck: Supple, trachea midline, no enlargement of anterior or posterior cervical nodes, no thyroid masses or goiter palpable. Cardio: Regular rate and rhythm, s1 and s2 normal, no murmur appreciated. Resp: Clear to auscultation bilaterally, no rhonchi, rales, wheezing or rubs Course Course Emergency Course: Portions of this record may have been created with voice recognition software. Level of Care: Express Care Visit Vital Signs Vital signs: Vital Signs Temperature 37.3 C 10/13/24 18:57 Pulse Rate 106 H 10/13/24 18:57 Respiratory Rate 20 10/13/24 18:57 Blood Pressure 151/84 H 10/13/24 18:57 Pulse Oximetry 98 10/13/24 18:57 Oxygen Delivery Room Air 10/13/24 18:57 Temperature 37.3 C 10/13/24 18:57 Pulse Rate 106 H 10/13/24 18:57 Respiratory Rate 20 10/13/24 18:57 Blood Pressure 151/84 H 10/13/24 18:57 Pulse Oximetry 98 10/13/24 18:57 Oxygen Delivery Room Air 10/13/24 18:57 Vital signs reviewed MDM - URI/Sore Throat MDM Narrative Medical decision making narrative: At the time of visit patient is resting comfortably on the exam table. Patient appears to be nontoxic. Labs: COVID, influenza, and strep test were all negative. We will send strep for culture. Plan: I suspect patient has URI with cough and congestion/pharyngitis/viral syndrome. No sign of bacterial infection and her lungs are clear in the clinic today. Supportive measures were discussed with the patient and they voiced understanding discharge instructions and agrees to treatment plan. Return precautions reviewed Differential Diagnosis Differential diagnosis: Likely upper respiratory infection, otitis media, sinusitis, viral infection, bronchitis, influenza, pharyngitis and other (COVID) Lab Data Labs: Lab Results 10/13/24 Range/Units 19:05 POC Grp A Strep Screen Negative (Negative) Discharge Plan Discharge Clinical Impression: Upper respiratory infection with cough and congestion, Acute viral syndrome Pharyngitis Qualifiers: Pharyngitis/tonsillitis etiology: unspecified etiology Qualified Code(s): J02.9 - Acute pharyngitis, unspecified Patient Disposition: Home Condition: Stable Instructions: Antibiotic Form, Pharyngitis (ED), Upper Respiratory Infection (ED), Viral Syndrome (ED) Additional Instructions: COVID, influenza, and strep test were all negative in the clinic today. We will send strep for culture if this comes back positive we will contact you in place you on antibiotics at that time. May take Coricidin HBP for cold/flu symptoms Cool-mist humidifier at the bedside Increase fluids and stay well hydrated Tylenol/motrin for pain/fever Flonase and OTC antihistamines such as Zyrtec or Claritin as directed Vicks vapor rub to open sinuses Sinus rinses for congestion Cepacol spray, cough drops, throat lozenges, warm tea with honey/lemon, gargle salt water to soothe throat BRAT diet for diarrhea Clear liquids x 24 hours then advance as tolerated for nausea/vomiting Go to the ED if you develop a worsening in your condition- high fever not controlled by Tylenol or Motrin, dehydration, weakness, lethargy, shortness of breath, or chest pain. Follow up with your PCP in 3-5 days if symptoms persist. Patient Language: Malay Prescriptions: No Action losartan 50 mg tablet 50 mg PO DAILY hydrochlorothiazide 25 mg tablet 25 mg PO DAILY Follow-up/Referrals: Rashmi,MD Marlo [Primary Care Provider] - Stand Alone Forms: Work/School Release IP Time of Disposition: 19:12 Quality NIHSS Nursing Documentation ED NIHSS nursing documentation: reviewed/agree
[2024-10-13 19:13] LABS: EDSTREPNEGPOS1 Negative (Negative)
[2024-10-13 19:19] LABS: EDCOVIDSCREEN Negative (Negative); EDINFLUASCREEN Negative (Negative); EDINFLUBSCREEN Negative (Negative)
== END 2024-10-13 19:26 | disposition home or self-care (01) ==
PROVIDERS: Emergency Provider Nurse Practitioner Family; PCP Internal Medicine
DX: J06.9 Acute upper respiratory infection, unspecified (principal); R05.9 Cough, unspecified; B34.9 Viral infection, unspecified; J02.9 Acute pharyngitis, unspecified; Z20.822 Contact with and (suspected) exposure to COVID-19; F17.290 Nicotine dependence, other tobacco product, uncomplicated; I10 Essential (primary) hypertension
CPT/HCPCS: 87081; 87426; 87804; 87880; 99213; G0463

== ENCOUNTER 2025-02-27 12:34 | Emergency (ER) | payer BC, SELFPAY ==
--- NOTE | ~2025-02-27 | XR_ITS ---
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 Findings: No acute fracture or malalignment. No significant degenerative changes. Soft tissues unremarkable. Impression: No acute fracture or malalignment. Reviewed, dictated and finalized at location P. IPLE RESAW OPERATOR Impression: No acute fracture or malalignment.
--- NOTE | ~2025-02-27 | XR_ITS ---
EXAMINATION: XR ankle LT min 3V, 02/27/2025 12:52 SOFTWARE QUALITY ASSURANCE SPECIALIST HISTORY: LT lateral foot/ankle pain 5x days, no trauma/injury COMPARISON: No comparisons available. Findings: No acute fracture or malalignment. No significant degenerative changes. Soft tissues unremarkable. Impression: No acute fracture or malalignment. Reviewed, dictated and finalized at location P. WARE QUALITY ASSURANCE SPECIALIST Impression: No acute fracture or malalignment.
[2025-02-27 12:40] VITALS: BP 145/97; PULSE 91; RESP 16; TEMP 36.8; O2SAT 100
--- NOTE | 2025-02-27 14:13 | ED.LOWEXIN ---
HPI - Extremity Injury (Lower) General Chief Complaint: Extremity Injury, Lower Stated Complaint: left ankle and foot pain Time Seen by Provider: 02/27/25 13:30 Source: patient and RN notes reviewed Mode of arrival: ambulatory Limitations: no limitations History of Present Illness HPI Narrative: 55-year-old female Presents Express Care complaining of pain sling to the left lateral ankle and foot. Patient reports she woke up with symptoms approximately 5 days ago. Patient denies any falls or injuries. However patient is on her feet a lot at work, she states she is a nurse. Patient's has been taking Tylenol with some relief. Patient denies any numbness, tingling or any other injuries. Patient has a history of hypertension. Patient reports the pain is worse with bearing weight. Related Data Home Medications ?Medication ?Instructions ?Recorded ?Confirmed ?Last Taken ?Type hydrochlorothiazide 25 mg tablet 25 mg PO DAILY 04/28/23 12/19/23 Unknown History losartan 50 mg tablet 50 mg PO DAILY 04/28/23 12/19/23 Unknown History spironolactone 25 mg tablet mg 02/27/25 Unknown History Allergies Allergy/AdvReac Type Severity Reaction Status Date / Time No Known Allergies Allergy Mild Verified 02/27/25 12:45 Review of Systems Review of Systems: CONSTITUTIONAL: Denies fever, chills, or sweats. EYES: Denies visual changes, redness, or discharge. ENT: Denies rhinorrhea, congestion, sore throat, or otalgia. CARDIOVASCULAR: Denies chest pain, palpitations, or edema. RESPIRATORY: Denies cough or dyspnea. GASTROINTESTINAL: Denies abdominal pain, nausea, vomiting, or diarrhea. GENITOURINARY: Denies dysuria or hematuria. SKIN: Denies rash, wound, or itching. MUSCULOSKELETAL: Denies back pain, joint pain, or myalgia. Positive for left ankle/foot pain and swelling NEUROLOGIC: Denies headache, numbness, or weakness. PSYCHIATRIC: Denies anxiety or depression. All other systems reviewed are negative, except as documented in HPI. [facility] Past Medical History Medical History Hypertension Surgical History Surgical History History of tonsillectomy H/O: hysterectomy Family History Family History Mother Hypertension Grandparent Hypertension Depression Social History Social History Additional smoking assessment comments: MIni cigars Alcohol intake: never Substance use: never Substance use type: marijuana Living arrangements: with family Occupation/Education: occupation Additional occupation/education comments: [employer] Gender identity (if verbalized by the patient): Female Spiritual care concerns: No Comments At the time of my signature, I reviewed and agree with the nursing past medical, surgical, social, and family history. There is no relevant family history pertinent to the patient complaint. Exam Narrative: GENERAL: This is a well-nourished, well-developed adult, in no apparent distress. They are non ill-appearing, nontoxic appearing. HEAD: normocephalic, atraumatic. EYES: Sclera clear/white. Vision is grossly intact. Conjunctiva normal. Extraocular movement intact. EARS: External ears normal Hearing grossly intact. NOSE: External nose normal THROAT: Mucous membranes moist NECK: Neck supple CARDIOVASCULAR: Regular rate and rhythm RESPIRATORY: Respiratory rate normal, respiratory effort nonlabored, no respiratory distress NEURO: awake, alert, and oriented to person, place and time. There were no obvious focal neurologic abnormalities. EXTREMITIES: Left ankle/foot: No obvious deformity, injury, delete bruising, redness. Mild swelling the left lateral ankle. Normal range of motion. Left lateral ankle is tender along with the lateral proximal foot. Capillary refill less than 3 seconds. Left pedal Pulse 2 +palpable. Normal sensation. Neurovascular status intact distal injury. Negative Coley's test. Patient is able to wiggle her toes. BACK: Nontender without deformity. Course Course Emergency Course: Portions of this record may have been created with voice recognition software Level of Care: Express Care Visit Vital Signs Vital signs: Vital Signs Temperature 98.2 F 02/27/25 12:40 Pulse Rate 91 02/27/25 12:40 Respiratory Rate 16 02/27/25 12:40 Blood Pressure 145/97 H 02/27/25 12:40 Pulse Oximetry 100 02/27/25 12:40 Oxygen Delivery Room Air 02/27/25 12:40 Temperature 98.2 F 02/27/25 12:40 Pulse Rate 91 02/27/25 12:40 Respiratory Rate 16 02/27/25 12:40 Blood Pressure 145/97 H 02/27/25 12:40 Pulse Oximetry 100 02/27/25 12:40 Oxygen Delivery Room Air 02/27/25 12:40 Reviewed MDM - Extremity Injury (Lower) MDM Narrative Medical decision making narrative: X-ray of left ankle and foot are negative for any fractures or acute findings. Given patient's pain and swelling will give her short course prednisone. Patient is already wearing Josh wraps her ankle. Discussed rice therapy. Discussed physical exam findings. Advised supportive measures and signs/symptoms to go to the ER. Pt is appropriate for outpt treatment and f/u. Differential Diagnosis Differential diagnosis: Likely ankle sprain and strain, ankle fracture and other (Arthritis, gout, cellulitis) Imaging Data Radiologist's impression: ITS Impressions Foot X-Ray 02/27/25 13:03 Impression: No acute fracture or malalignment. Ankle X-Ray 02/27/25 13:04 Impression: No acute fracture or malalignment. Critical Care Time Critical Care Time Critical Care Time: No Discharge Plan Discharge Clinical Impression: Ankle pain, left Qualifiers: Chronicity: acute Qualified Code(s): M25.572 - Pain in left ankle and joints of left foot Patient Disposition: Home Condition: Stable Instructions: Antibiotic Form, Arthralgia (ED) Additional Instructions: The x-ray of your left ankle and foot were negative for any fractures or acute findings. Take the prednisone as directed. Rest and elevate the leg; bear weight as tolerated Apply ice 15-20 minute intervals several times a day Keep it wrapped with JOSH or use a soft ankle splint You may take ibuprofen 600 mg to 800 mg every 6-8 hours. Do not exceed more than 800 mg of ibuprofen per dose. Do not exceed more than 3200 mg ibuprofen in a day. You may take up to 1000 mg Tylenol every 6-8 hours. Do not exceed 1000 mg per dose, do exceed more than 4000 mg of Tylenol in a day. Follow up with your primary care provider as needed in 1-2 weeks specially pain is persisting. Patient Language: Lithuanian Prescriptions: New prednisone 20 mg tablet 40 mg PO DAILY 3 Days Qty: 6 0RF No Action spironolactone 25 mg tablet losartan 50 mg tablet 50 mg PO DAILY hydrochlorothiazide 25 mg tablet 25 mg PO DAILY Follow-up/Referrals: Rashmi,MD Marlo [Primary Care Provider, Unknown] Stand Alone Forms: Work/School Release IP Time of Disposition: 13:39
== END 2025-02-27 13:45 | disposition home or self-care (01) ==
PROVIDERS: PCP Internal Medicine
DX: M25.572 Pain in left ankle and joints of left foot (principal); I10 Essential (primary) hypertension
CPT/HCPCS: 73610; 73630; 99213; G0463